=== PATIENT | male | born 1990 | race Caucasian/White ===

== ENCOUNTER 2017-07-02 15:30 | Emergency (ER) | payer BC, OTHER ==
[~2017-07-02] VITALS: Ht 177.8 cm; Wt 107.1 kg
[2017-07-02 16:53] LABS: BASO # 0.1 10^3/uL (0.0-0.2); BASO % 0.6 % (0.0-1.0); EOS # 0.1 10^3/uL (0.0-0.50); EOS % 0.9 % (0.0-3.0); IMMATURE GRANULOCYTE % 0.3 % (0-0); LYMPH # 1.4 10^3/uL (1.5-6.5); LYMPH % 18.5 % (24.0-44.0); MEAN CORPUSCULAR HEMOGLOBIN 29.8 pg (27.0-33.0); MEAN CORPUSCULAR HGB CONC 34.2 g/dl (32.0-36.5); MEAN CORPUSCULAR VOLUME 87.2 fl (80.0-96.0); MONO # 0.6 10^3/uL (0.0-0.8); MONO % 8.2 % (0.0-5.0); NEUTROPHILS # 5.6 10^3/uL (1.8-7.7); NEUTROPHILS % 71.5 % (36.0-66.0); PLATELET COUNT, AUTOMATED 254 10^3/uL (150-450); RED CELL DISTRIBUTION WIDTH 12.5 % (11.5-14.5); WHITE BLOOD COUNT 7.8 10^3/uL (4.0-10.0)
[2017-07-02 17:13] LABS: INR 0.96
[2017-07-02 17:18] LABS: ANION GAP 6 MEQ/L (8-16); BLOOD UREA NITROGEN 10 MG/DL (7-18); CALCIUM LEVEL 8.7 MG/DL (8.5-10.1); CARBON DIOXIDE LEVEL 30 MEQ/L (21-32); CHLORIDE LEVEL 104 MEQ/L (98-107); CREATININE FOR GFR 1.03 MG/DL (0.70-1.30); GLOMERULAR FILTRATION RATE > 60.0 (>60); GLUCOSE, FASTING 101 MG/DL (70-105); POTASSIUM SERUM 4.1 MEQ/L (3.5-5.1); SODIUM LEVEL 140 MEQ/L (136-145)
[2017-07-02] MEDS ORDERED: ALBUTEROL SULFATE 2.5 MG/0.5 ML INH NEB SOLN INH ONE (17:30)
--- NOTE | 2017-07-02 18:14 | ECGEPIP ---
Stationary ECG Study [facility] - ED Test Date: 2017-07-02 Pat Name: MEG FOSTER Department: Room: - Gender: M Installers Mechanical: javier : 1990 Requested By: Starla Pringle Order Number: [id number] Reading MD: Parveen Brantley Measurements Intervals [place] Rate: 70 P: 27 GA: 152 QRS: 48 QRSD: 82 T: 9 QT: 360 QTc: 390 Interpretive Statements SINUS RHYTHM NONSPECIFIC T-WAVE ABNORMALITY NO PRIORS FOR COMPARISON Electronically Signed On 07-02-2017 18:14:22 EST by Parveen Brantley
[2017-07-02 18:29] VITALS: BP 132/91
--- NOTE | 2017-07-03 07:14 | REP ---
Chest two views HISTORY: Pneumonia Comparison: None The lungs are clear. The heart is normal in size. The pulmonary vasculature is normal in appearance. The bony structure is intact. IMPRESSION: No acute disease. Signed by Andrae Stinson MD 07/02/2017 04:49 P
== END 2017-07-02 18:35 | disposition home or self-care (01) ==
LOC: M ED 15:30
DX: R07.9 Chest pain, unspecified (principal); F41.9 Anxiety disorder, unspecified; J30.2 Other seasonal allergic rhinitis; F17.220 Nicotine dependence, chewing tobacco, uncomplicated

== ENCOUNTER → 2019-12-16 | Outpatient (REF) | payer OTHER | LOC: M LAB REF 09:12 | PROVIDERS: ATTEND Surgery | DX: D17.1 Benign lipomatous neoplasm of skin and subcutaneous tissue of trunk (principal) ==

== ENCOUNTER 2023-02-14 12:58 | Emergency (ER) | payer OTHER ==
[~2023-02-14] VITALS: Ht 177.8 cm; Wt 100.7 kg
[2023-02-14 12:58] VITALS: TEMP 97.9
[~2023-02-14 12:58] MED LIST: RALTEGRAVIR 400 MG TAB (ISENTRESS) PO SCH; TRUVADA 200MG/300MG TABLET PO SCH
[2023-02-14 14:18] LABS: BASO # 0.1 10^3/uL (0.0-0.2); BASO % 0.8 % (0.0-1.0); EOS % 0.5 % (0.0-3.0); HEMATOCRIT 46.3 % (42.0-52.0); HEMOGLOBIN 16.1 g/dl (13.5-17.5); LYMPH # 1.5 10^3/uL (1.5-5.0); LYMPH % 17.9 % (24.0-44.0); MEAN CORPUSCULAR HGB CONC 34.8 g/dl (32.0-36.5); MEAN CORPUSCULAR VOLUME 86.4 fl (80.0-96.0); MONO # 0.6 10^3/uL (0.0-0.8); MONO % 7.1 % (2.0-8.0); NEUTROPHILS # 6.1 10^3/uL (1.5-8.5); NEUTROPHILS % 73.5 % (36.0-66.0); PLATELET COUNT, AUTOMATED 263 10^3/uL (150-450); RED BLOOD COUNT 5.36 10^6/uL (4.30-6.10); WHITE BLOOD COUNT 8.4 10^3/uL (4.0-10.0)
[2023-02-14 14:44] LABS: ALBUMIN 4.2 G/DL (3.2-5.2); ALKALINE PHOSPHATASE 86 U/L (46-116); ALT/SGPT 45 U/L (7.0-40); AST/SGOT 21 U/L (<34); BILIRUBIN,TOTAL 0.5 MG/DL (0.3-1.2); BLOOD UREA NITROGEN 13 MG/DL (9-23); CARBON DIOXIDE LEVEL 27 MMOL/L (20-31); CHLORIDE LEVEL 105 MMOL/L (98-107); CREATININE FOR GFR 0.91 MG/DL (0.70-1.30); GLOMERULAR FILTRATION RATE > 60.0 (>60); GLUCOSE, FASTING 96 MG/DL (60-100); POTASSIUM SERUM 4.5 MMOL/L (3.5-5.1); SODIUM LEVEL 140 MMOL/L (136-145)
[2023-02-14 14:45] LABS: HEPATITIS B SURFACE ANTIBODY POSITIVE (POSITIVE)
[2023-02-14 14:58] LABS: HEPATITIS B SURFACE ANTIGEN NEGATIVE (NEGATIVE)
[2023-02-14 15:11] LABS: HIV 1&2 SCREEN NEGATIVE (NEGATIVE)
[2023-02-14 15:19] LABS: HEPATITIS C VIRUS ABY INDEX 0.08 INDEX (<0.8)
[2023-02-14] MEDS ORDERED: EXPOSURE KIT-ADULT 7 DAY SUPPLY PO ONE (15:30)
[2023-02-14] MEDS ORDERED: RALT40TA PO (15:32)
[2023-02-14] MEDS ORDERED: EMTR1TAB16 PO (15:32)
[2023-02-14] MEDS ORDERED: ONDA4TAB6 PO (15:43)
[2023-02-14 15:52] VITALS: BP 138/84; O2SAT 98
[2023-02-14] MEDS ORDERED: RALTEGRAVIR 400 MG TAB (ISENTRESS) PO ONE (16:00)
[2023-02-14] MEDS ORDERED: TRUVADA 200MG/300MG TABLET PO ONE (16:00)
== END 2023-02-14 16:27 | disposition home or self-care (01) ==
LOC: M ED 12:58
DX: Z77.21 Contact with and (suspected) exposure to potentially hazardous body fluids (principal); W46.1XXA Contact with contaminated hypodermic needle, initial encounter; Z87.442 Personal history of urinary calculi; Y99.0 Civilian activity done for income or pay

== ENCOUNTER → 2023-04-04 | Outpatient (CLI) | payer OTHER ==
[~2023-04-04] MED LIST changes: +EMTR1TAB16 PO; +ONDA4TAB6 PO; +RALT40TA PO; -RALTEGRAVIR 400 MG TAB (ISENTRESS) PO SCH; -TRUVADA 200MG/300MG TABLET PO SCH
[2023-04-04 12:17] LABS: BASO # 0.1 10^3/uL (0.0-0.2); EOS # 0.1 10^3/uL (0.0-0.5); EOS % 2.1 % (0.0-3.0); HEMATOCRIT 49.5 % (42.0-52.0); HEMOGLOBIN 16.8 g/dl (13.5-17.5); LYMPH # 1.6 10^3/uL (1.5-5.0); LYMPH % 25.5 % (24.0-44.0); MEAN CORPUSCULAR HEMOGLOBIN 29.9 pg (27.0-33.0); MEAN CORPUSCULAR HGB CONC 33.9 g/dl (32.0-36.5); MEAN CORPUSCULAR VOLUME 88.2 fl (80.0-96.0); MONO # 0.6 10^3/uL (0.0-0.8); MONO % 9.7 % (2.0-8.0); NEUTROPHILS # 3.9 10^3/uL (1.5-8.5); NEUTROPHILS % 61.4 % (36.0-66.0); PLATELET COUNT, AUTOMATED 271 10^3/uL (150-450); RED BLOOD COUNT 5.61 10^6/uL (4.30-6.10); WHITE BLOOD COUNT 6.3 10^3/uL (4.0-10.0)
[2023-04-04 12:37] LABS: ALBUMIN 4.2 G/DL (3.2-5.2); ALKALINE PHOSPHATASE 85 U/L (46-116); ALT/SGPT 41 U/L (7.0-40); AST/SGOT 16 U/L (<34); BILIRUBIN,TOTAL 0.5 MG/DL (0.3-1.2); BLOOD UREA NITROGEN 11 MG/DL (9-23); CALCIUM LEVEL 9.3 MG/DL (8.5-10.1); CARBON DIOXIDE LEVEL 29 MMOL/L (20-31); CHLORIDE LEVEL 104 MMOL/L (98-107); CREATININE FOR GFR 0.99 MG/DL (0.70-1.30); GLOMERULAR FILTRATION RATE > 60.0 (>60); GLUCOSE, FASTING 101 MG/DL (60-100); POTASSIUM SERUM 4.6 MMOL/L (3.5-5.1); SODIUM LEVEL 139 MMOL/L (136-145); TOTAL PROTEIN 7.3 G/DL (5.7-8.2)
[2023-04-04 13:07] LABS: HIV 1&2 SCREEN NEGATIVE (NEGATIVE)
[2023-04-04 13:15] LABS: HEPATITIS C VIRUS ABY INDEX 0.12 INDEX (<0.8)
== END ==
LOC: M WUC 09:05
PROVIDERS: ATTEND Internal Medicine Infectious Disease
DX: S61.031D Puncture wound without foreign body of right thumb without damage to nail, subsequent encounter (principal); W46.1XXD Contact with contaminated hypodermic needle, subsequent encounter; Y93.9 Activity, unspecified; Y92.9 Unspecified place or not applicable

== ENCOUNTER → 2023-08-23 | Outpatient (REF) | payer OTHER | LOC: M SFHCWAGY 10:10 | PROVIDERS: ATTEND Obstetrics & Gynecology | DX: N46.9 Male infertility, unspecified (principal) ==

== ENCOUNTER → 2023-08-28 | Outpatient (REF) | payer OTHER ==
[2023-08-28 18:33] LABS: SEMEN APPEARANCE OPAQUE (OPAQUE)
[2023-08-28 18:34] LABS: SEMEN VISCOSITY LIQUID (LIQUID); SEMEN VOLUME 4.5 ml (2.0-5.0); SEMEN pH 8.5 (7.0-8.0)
[2023-08-28 18:36] LABS: SPERM CONCENTRATION 27.1 M/ml (>=15.0)
[2023-08-28 18:41] LABS: WBC CONCENTRATION <=1 M/ml (<=1 M/ml)
== END ==
LOC: M SFHCWAGY 16:13
PROVIDERS: ATTEND Obstetrics & Gynecology
DX: N46.9 Male infertility, unspecified (principal)

== ENCOUNTER → 2024-11-22 | Outpatient (REF) | payer OTHER ==
[~2024-11-22] MED LIST changes: +ONDA-282 PO; -ONDA4TAB6 PO
== END ==
LOC: M SMT 13:22
PROVIDERS: ATTEND Urology
DX: Z30.2 Encounter for sterilization (principal)

== ENCOUNTER → 2025-02-11 | Outpatient (REF) | payer OTHER | LOC: M SMT 10:43 | PROVIDERS: ATTEND Urology | DX: Z30.8 Encounter for other contraceptive management (principal) ==

== ENCOUNTER → 2025-02-13 | Outpatient (REF) | payer OTHER ==
[2025-02-13 09:59] LABS: SEMEN APPEARANCE OPAQUE (OPAQUE); SEMEN VISCOSITY LIQUID (LIQUID); SEMEN VOLUME 3.4 ml (2.0-5.0)
[2025-02-13 10:00] LABS: WBC CONCENTRATION <=1 M/ml (<=1 M/ml)
== END ==
LOC: M SMT 09:14
PROVIDERS: ATTEND Urology
DX: Z30.8 Encounter for other contraceptive management (principal)